=== PATIENT | male | born 1975 | race Caucasian/White ===

== ENCOUNTER 2016-10-25 12:00 | Day surgery (SDC) | payer MEDICAID ==
[~2016-10-25] VITALS: Ht 177.8 cm; Wt 86.2 kg
[~2016-10-25 12:00] MED LIST: OMEP20TA86 PO; Sodium Chloride LOK Flush 10 mL Syringe IV PRN; fentaNYL-PF 50 mCg/mL 2 mL Inj IVPUSH PRN
[2016-10-25 12:26] VITALS: BP 124/77; PULSE 65; RESP 16; O2SAT 96
[2016-10-25] MEDS ORDERED: MULT-1018 PO (12:28)
[2016-10-25] MEDS: 0.9% Sodium Chloride 1,000 ML IV SCH ×2 (12:35→12:39)
[2016-10-25 13:45] VITALS: BP 114/64; PULSE 62; RESP 16; O2SAT 97
[2016-10-25 13:54] VITALS: BP 122/79; PULSE 67; RESP 14; O2SAT 100
--- NOTE | 2016-10-25 19:45 | ENDO ---
[address] [address] ENDOSCOPY PROCEDURE PATIENT: ORIANA MCCLURE : 1975 MR#: [id number] ADMIT: 10/25/2016 JOB ID: [id number] PROCEDURE: Esophagogastroduodenoscopy. INDICATION: Gastroesophageal reflux. The patient's ASA classification is 1. Mallampati score is 1. MEDICATIONS: Versed at 5 mg and fentanyl 100 mcg. INSTRUMENT USED: GIFH-180J PROCEDURE DETAILS: After informed consent was obtained, the patient was brought to the GI suite, where he was placed on oxygen via nasal cannula and monitored with continuous pulse oximeter, telemetry, and blood pressure monitoring. A time-out was performed. Then, he was placed in a left lateral decubitus position and medications were administered for sedation. A bite block was placed. The standard EGD scope was inserted through the bite block and advanced under direct visualization to the second portion of duodenum without difficulty. FINDINGS: 1. Normal appearing duodenal bulb, first and second portion. Multiple random biopsies were obtained. 2. Normal-appearing pylorus, antrum and gastric body. 3. Retroflexed views in the gastric body revealed a normal appearing cardia and fundus. 4. Multiple random biopsies were obtained throughout the antrum and body of stomach. 5. The GE junction was at approximately 40 cm and there was ulcerations on two folds along with erythema and edema suggestive of esophagitis. The remainder of the esophagus otherwise unremarkable. IMPRESSION: Crewe class B ulcerative esophagitis. RECOMMENDATIONS: 1. PPI daily. 2. Reflux precautions. 3. Proceed to colonoscopy.
--- NOTE | 2016-10-25 19:50 | ENDO ---
[address] [address] ENDOSCOPY PROCEDURE PATIENT: ORIANA MCCLURE : 1975 MR#: [id number] ADMIT: 10/25/2016 JOB ID: [id number] DATE OF SERVICE: 10/25/2016 PROCEDURE: Colonoscopy. INDICATION: Diarrhea. Please see above for ASA classification, Mallampati score, and medications. INSTRUMENT USED: PCFH-180AL PREPARATION QUALITY: Good. PROCEDURE DETAILS: After completion of the EGD exam, the patient was turned and then a digital rectal exam was performed which was unremarkable. The colonoscope was then inserted into the rectum and advanced under direct visualization to the cecum, which was identified by the presence of the ileocecal valve and appendiceal orifice. Once the cecum was reached, the terminal ileum was intubated, which was identified by the presence of the ileocecal valve and villous-appearing mucosa of the terminal ileum. Once the terminal ileum was reached, the colonoscope was withdrawn back to the rectum. Mucosa and lumen were examined. In the rectum, retroflexion was performed. Following retroflexion, remaining air in the rectum was suctioned, and procedure was completed. FINDINGS: 1. Normal appearing terminal ileum. 2. Normal appearing colon from rectum to cecum. Multiple random biopsies were obtained throughout the entire colon. IMPRESSION: Normal colonoscopy to terminal ileum. RECOMMENDATIONS: 1. Await biopsy results. 2. Follow up in GI clinic. COMPLICATIONS: None. ESTIMATED BLOOD LOSS: Less than 5 mL
--- NOTE | 2016-10-30 16:28 | PATH ---
SURGICAL PATHOLOGY Attending Physician:Milagro Álvarez CASE STATUS: Signed Out PATIENT NAME: ORIANA MCCLURE PID: [id number] : 1975 DATE COLLECTED:10/25/2016 00:00 SPECIMEN: 1: Duodenum, Biopsy 2: Gastric, Biopsy 3: Esophagus, Biopsy 4: Colon, Biopsy CLINICAL HISTORY: GERD, DIARRHEA 1. Duodenum Bx 2. Gastric Bx 3. Distal Esophagus Bx 4. Random colon Bx FINAL DIAGNOSIS: 1. Duodenum Biopsy: Duodenal mucosa with no diagnostic abnormality. Negative for active inflammation and features of sprue, dysplasia, or malignancy. 2. Gastric Biopsy: Portions of gastric antral and body-type mucosa with no diagnostic abnormality. No definite H. pylori organisms identified by H&E stain. Negative for intestinal metaplasia, dysplasia, and malignancy. 3. Distal Esophagus, Biopsy: Squamocolumnar junctional mucosa with no diagnostic abnormality. Negative for intestinal metaplasia. Negative for dysplasia and malignancy. 4. Random Colon Biopsies: Superficial portions of colorectal mucosa with occasional lymphoid aggregates and no diagnostic abnormality. Negative for active inflammation, granulomas, dysplasia, and malignancy. ICD10: K21.0 GROSS DESCRIPTION: The specimens are received in formalin, labeled with the patient's name, and sublabeled as the following: (1) duodenum bx; (2) gastric bx; (3) distal esophagus bx; (4) random colon bx. (1) The specimen consists of multiple fragments of morillo-white rubbery glistening semi-translucent tissue (1.3 x 1.2 x 0.1 cm in aggregate). Section code: (1A) tissue. Specimen entirely submitted. (2) The specimen consists of a fragment of morillo-white rubbery glistening semi-translucent tissue (0.5 x 0.3 x 0.2 cm). Section code: (2A) tissue. Specimen entirely submitted. (3) The specimen consists of a fragment of morillo-white rubbery glistening semi-translucent tissue (0.2 x 0.2 x 0.1 cm). Section code: (3A) tissue. Specimen entirely submitted. (4) The specimen consists of multiple fragments of morillo-white rubbery glistening semi-translucent tissue (2.0 x 1.2 x 0.2 cm in aggregate). Section code: (3A) tissue. Specimen entirely submitted. 10/27/16 ZAKIYA ICD-9 CODES: CPT CODES: 1: 28782 2: 83505 3: 37264 4: 93559 Electronically Signed Out Aaliyah Chan MD [facility] [address], [place] [address] Technical component performed at [facility], [facility] [address], [place], [address]
== END 2016-10-25 23:59 | disposition home or self-care (01) ==
LOC: END 12:00
PROVIDERS: ATTEND Internal Medicine Gastroenterology
DX: R19.7 Diarrhea, unspecified (principal); K22.10 Ulcer of esophagus without bleeding; K21.9 Gastro-esophageal reflux disease without esophagitis; D69.6 Thrombocytopenia, unspecified
CPT/HCPCS: 43239; 45380; 88305; 99153; G0500; J7030